=== PATIENT | male | born 1930 | race Caucasian/White ===

== ENCOUNTER 2019-11-16 08:18 | Outpatient (CLI) | payer MEDICARE, BC ==
--- NOTE | 2019-11-16 09:40 | MRI ---
LUMBAR SPINE MRI WITHOUT CONTRAST: DATE: 11/16/2019. COMPARISON: None. HISTORY: Bilateral leg soreness, lumbar radiculopathy. TECHNIQUE: Multiplanar, multisequence MRI imaging of the lumbar spine is provided without contrast. FINDINGS: Sagittal STIR imaging demonstrates no focal area of osseous marrow edema. L3 hemangioma noted. On the basis of 5 lumbar-type vertebral bodies conus medullaris terminates at L 1-2 level. T12-L1: Disk space narrowing and disk desiccation with bilateral facet hypertrophy, left greater placido n right. No significant central canal or neural foraminal stenosis. L1-2: Mild bilateral facet hypertrophy. Disk space narrowing and disk desiccation with no significa nt central canal or neural foraminal stenosis. L2-3: There is mild bilateral facet hypertrophy. There is no significant central canal or neural fo raminal stenosis. L3-4: There is prominent bilateral facet hypertrophy with severe hypertrophy of the ligamentum flavu m bilaterally. There is disk space narrowing with disk desiccation and mild disk bulge. This combin ation of findings causes severe central canal stenosis. There is mild bilateral neural foraminal claudio nosis. There are posterior degenerative edematous end plate changes present at L3-4. L4-5: Disk space narrowing with disk desiccation. Bilateral facet hypertrophy, right greater than l eft. NO significant central canal stenosis. Mild bilateral neural foraminal stenosis. L5-S1: There is disk space narrowing with vacuum disk formation and disk desiccation. Mild bilatera l facet hypertrophy. Moderate left and mild right neural foraminal stenosis. No significant central canal stenosis. Visualized retroperitoneal structures demonstrate no acute findings. IMPRESSION: Multilevel degenerative change within the lumbar spine, most significant at the L3-4 level where disk bulge and bilateral facet hypertrophy causes severe central canal stenosis. POS: [facility]
== END 2019-11-16 08:19 | disposition home or self-care (01) ==
LOC: SCSMRI 08:18
PROVIDERS: ATTEND Family Medicine
DX: M47.26 Other spondylosis with radiculopathy, lumbar region (principal); M51.9 Unspecified thoracic, thoracolumbar and lumbosacral intervertebral disc disorder; M48.061 Spinal stenosis, lumbar region without neurogenic claudication
CPT/HCPCS: 72148